=== PATIENT | male | born 1990 | race Caucasian/White ===

== ENCOUNTER 2024-02-29 09:40 | Emergency (ER) | payer OTHER ==
[~2024-02-29] VITALS: Ht 180.3 cm; Wt 122.5 kg
[2024-02-29 10:10] VITALS: TEMP 98.3
[2024-02-29 11:39] VITALS: PULSE 74; RESP 16; O2SAT 100
== END 2024-02-29 11:35 | disposition home or self-care (01) ==
LOC: ER 09:50
DX: S60.012A Contusion of left thumb without damage to nail, initial encounter (principal); W01.0XXA Fall on same level from slipping, tripping and stumbling without subsequent striking against object, initial encounter; Y93.01 Activity, walking, marching and hiking; Y92.89 Other specified places as the place of occurrence of the external cause
CPT/HCPCS: 99283